=== PATIENT | male | born 1945 | race Caucasian/White ===

== ENCOUNTER 2021-11-25 17:59 | Emergency (ER) | payer OTHER ==
[~2021-11-25] VITALS: Ht 175.3 cm; Wt 70.3 kg
[2021-11-25 18:10] VITALS: BP_SYST 130
--- NOTE | 2021-11-25 18:15 | NUR ---
DR. SEGAL ASSESSING PT AT THIS TIME
--- NOTE | 2021-11-25 18:35 | NUR ---
PT TAKEN FOR XRAYS.
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
--- NOTE | 2021-11-25 19:25 | NUR ---
PT BACK FROM XRAY.
--- NOTE | 2021-11-25 19:25 | NUR ---
PT ENDORSED TO JAYY VINES. ALL QUESTIONS AND CONCERNS ADDRESSED.
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
[2021-11-25 22:02] VITALS: BP_SYST 117
--- NOTE | 2021-11-25 22:05 | NUR ---
DC PT HOME AAOX4, NO SOB NOTED AND NOT IN ANY DISTRESS. DC INSTRUCTION WERE GIVEN TO [place] ALSO INSTRUCTED TO F/U CHRIS HIS PCP. HE VERBALIZED UNDERSTANDING. PT AMBULATED WITH STEADY GAIT OUT OF DEPT.
== END 2021-11-25 22:02 | disposition home or self-care (01) ==
LOC: SED 17:59
DX: S13.4XXA Sprain of ligaments of cervical spine, initial encounter (principal); E11.9 Type 2 diabetes mellitus without complications; Z79.899 Other long term (current) drug therapy; V49.40XA Driver injured in collision with unspecified motor vehicles in traffic accident, initial encounter; Y93.89 Activity, other specified; Y92.89 Other specified places as the place of occurrence of the external cause; Y99.8 Other external cause status
CPT/HCPCS: 71045; 72040-TC; 72100-TC; 82962; 99284